=== PATIENT | female | born 1940 | race African-American/Black ===

== ENCOUNTER 2016-10-12 16:28 | Emergency (ER) | payer OTHER ==
[~2016-10-12] VITALS: Ht 152.4 cm; Wt 68.0 kg
[~2016-10-12 16:28] MED LIST: AMLO5TAB2; DULO30CA; GABA800T87; OMEP20TA34; PRON100T; RISE35TA
[2016-10-12 17:30] LABS: Basophils # (auto) 0 uL; Basophils % (auto) 0.4 % (0.0-2.0); Eosinophils # (auto) 0.3 uL; Eosinophils % (auto) 4.7 % (0.0-7.0); Hematocrit 37.2 % (36.0-46.0); Hemoglobin 11.6 g/dL (12.2-16.2); Lymphocytes # (auto) 1.4 uL; Lymphocytes % (auto) 23.2 % (10.0-50.0); Mean Corpuscular Hemoglobin 27.8 pg (28.0-32.0); Mean Corpuscular Hgb Conc. 31.1 g/dL (32.0-36.0); Mean Corpuscular Volume 89.6 fL (80.0-100.0); Mean Platelet Volume 7.2 fL (7.4-10.4); Monocytes # (auto) 0.5 uL; Monocytes % (auto) 8.8 % (0.0-12.0); Neutrophils # (auto) 3.7 uL; Neutrophils % (auto) 62.9 % (37.0-80.0); Platelet Count (auto) 560 10^3/uL (140-450); White Blood Cell 5.9 10^3/uL (4.4-10.8)
[2016-10-12 17:49] LABS: Albumin 2.4 g/dL (3.4-5.0); BUN/Creatinine Ratio 20.6; Bilirubin, Total 0.4 mg/dL (0.2-1.0); Calcium 8.5 mg/dL (8.5-10.1); Magnesium 1.7 mg/dL (1.6-2.6)
[2016-10-12] MEDS ORDERED: ONDANSETRON HCL 4 MG/2 ML VIAL IV ONE (19:30)
[2016-10-12] MEDS ORDERED: MORPHINE SULF INJ 2 MG/ML SYRINGE 1ML IV ONE (19:30)
[2016-10-12 20:29] VITALS: BP 139/92
== END 2016-10-12 20:39 | disposition left against medical advice (07) ==
LOC: EDUNIT# 16:28 → ER 16:37
DX: R07.9 Chest pain, unspecified (principal); D50.9 Iron deficiency anemia, unspecified; R51 Headache; E87.1 Hypo-osmolality and hyponatremia; M19.90 Unspecified osteoarthritis, unspecified site; K21.9 Gastro-esophageal reflux disease without esophagitis; I10 Essential (primary) hypertension; Z79.899 Other long term (current) drug therapy
CPT/HCPCS: 36415; 71020; 80053; 83735; 84484; 85025; 93005; 94761; 96374; 96375; 99285; J2270; J2405